=== PATIENT | female | born 1990 | race Caucasian/White ===

== ENCOUNTER 2018-10-10 21:31 | Emergency (ER) | payer OTHER ==
[2018-10-10] MEDS ORDERED: PROMETHAZINE 25 MG/ML VIAL ONE (22:22)
[2018-10-10 22:29] LABS: Absolute Lymphocytes (CBC) 0.6 K/uL (0.7-4.9); Absolute Monocytes 0.9 K/uL (0.1-1.3); Absolute Neutrophil 11.5 K/uL (1.8-8.0); Basophils % 0.2 % (0-1.3); Eosinophils % 0.1 % (0-4.4); Hematocrit 39.4 % (36.0-45.0); Lymphocytes % 4.8 % (15.3-44.8); RBC Red Blood Cell Count 4.23 M/uL (3.86-4.86)
[2018-10-10 22:43] LABS: BUN Blood Urea Nitrogen 8 mg/dL (7-18); Bicarbonate 26 mmol/L (21-32); Glucose Level 129 mg/dL (74-106); Potassium 3.2 mmol/L (3.5-5.1); Sodium Level 138 mmol/L (136-145)
[2018-10-10] MEDS ORDERED: NA CHLORIDE 0.9% 1,000 ML ONE (23:03)
[2018-10-10] MEDS ORDERED: IBUPROFEN 400 MG TAB ONE (23:03)
[2018-10-10] MEDS ORDERED: HYDROCODONE/CHLORPHEN 5 ML/OSYR ONE (23:03)
--- NOTE | 2018-10-11 00:27 | ER ---
Nurse's Notes [facility] Name: Julianna Morales Age: 28 yrs Sex: Female : 1990 Arrival Date: 10/10/2018 Time: 21:35 Bed 23 Private MD: Diagnosis: Influenza due to other identified influenza virus;Volume depletion;Fever presenting with conditions classified elsewhere Presentation: 10/10 21:42 Presenting complaint: Patient states: "I was diagnosed with the flu type A last Sunday jd3 and today I am having really bad chills, nausea and shortness of breath. that was one of the symptoms on the paper work that said, go to the er if this happens.". Transition of care: patient was not received from another setting of care. Onset of symptoms was October 10, 2018. Risk Assessment: Do you want to hurt yourself or someone else? Patient reports no desire to harm self or others. Initial Sepsis Screen: Does the patient meet any 2 criteria? No. Patient's initial sepsis screen is negative. Does the patient have a suspected source of infection? No. Patient's initial sepsis screen is negative. Care prior to arrival: Medication(s) given: Motrin given at 1900. 21:42 Method Of Arrival: Ambulatory jd3 21:42 Acuity: ANGEL 3 jd3 EXPEDITER SERVICE ORDER: 21:45 LMP 10/10/2018 jd3 Historical: - Allergies: 21:45 No Known Allergies; jd3 - Home Meds: 21:45 None [Active]; jd3 - PMHx: 21:45 None; jd3 - PSHx: 21:45 None; jd3 - Immunization history:: Adult Immunizations up to date. - Social history:: Smoking status: Patient/guardian denies using tobacco. - Ebola Screening: : Patient negative for fever greater than or equal to 101.5 degrees Fahrenheit, and additional compatible Ebola Virus Disease symptoms. Screenin:40 Abuse screen: Denies threats or abuse. Denies injuries from another. Nutritional ca1 screening: No deficits noted. Tuberculosis screening: No symptoms or risk factors identified. Fall Risk None identified. Assessment: 21:40 General: Appears in no apparent distress. comfortable, Behavior is calm, cooperative, ca1 appropriate for age. Pain: Complains of pain in chest Pain does not radiate. Pain currently is 3 out of 10 on a pain scale. at worst was 4 out of 10 on a pain scale. Pain began 4 hours ago. Aggravated by coughing. Neuro: Level of Consciousness is awake, alert, obeys commands, Oriented to person, place, time, situation. Cardiovascular: Heart tones S1 S2 present Capillary refill < 3 seconds Patient's skin is warm and dry. Respiratory: Reports cough that is productive, since 2 days ago Airway is patent Respiratory effort is even, unlabored, Respiratory pattern is regular, symmetrical, Breath sounds are clear bilaterally. GI: Abdomen is flat, non-distended, Bowel sounds present X 4 quads. Abd is soft and non tender X 4 quads. GI: Reports nausea, vomiting. : No deficits noted. No signs and/or symptoms were reported regarding the genitourinary system. EENT: Reports nasal congestion nasal discharge that is watery. Derm: Skin is intact, is healthy with good turgor, Skin is pink, warm \\T\\ dry. Musculoskeletal: Circulation, motion, and sensation intact. Capillary refill < 3 seconds. 22:16 Reassessment: Pt to Xray. ca1 22:35 Reassessment: Patient appears in no apparent distress at this time. Patient and/or ca1 family updated on plan of care and expected duration. Pain level reassessed. Patient is alert, oriented x 3, equal unlabored respirations, skin warm/dry/pink. 23:46 Reassessment: Patient appears in no apparent distress at this time. Patient and/or ca1 family updated on plan of care and expected duration. Pain level reassessed. Patient is alert, oriented x 3, equal unlabored respirations, skin warm/dry/pink. 10/11 00:13 Reassessment: Patient appears in no apparent distress at this time. Patient and/or ca1 family updated on plan of care and expected duration. Pain level reassessed. Patient is alert, oriented x 3, equal unlabored respirations, skin warm/dry/pink. 00:46 Reassessment: Critical Lab received from lab. Band count 31%. Provider Notified. ca1 01:03 Reassessment: Pt IV bolus still ongoing. ca1 Vital Signs: 10/10 21:45 BP 128 / 74; Pulse 128; Resp 19 S; Temp 102.3(O); Pulse Ox 99% on R/A; Weight 63.5 kg jd3 (R); Height 5 ft. 3 in. (160.02 cm) (R); Pain 9/10; 23:46 BP 109 / 67; Pulse 112; Resp 19; Temp 100.9(O); Pulse Ox 100% on R/A; ca1 10/11 00:13 BP 114 / 73; Pulse 103; Resp 19; Pulse Ox 100% on R/A; ca1 02:00 BP 107 / 67 RA; Pulse 98; Resp 15 S; Pulse Ox 98% on R/A; rv 10/10 21:45 Body Mass Index 24.80 (63.50 kg, 160.02 cm) jd3 ED Course: 10/10 21:35 Patient arrived in ED. am2 21:40 Patient has correct armband on for positive identification. Placed in gown. Bed in low ca1 position. Call light in reach. Side rails up X 1. Pulse ox on. NIBP on. 21:44 Triage completed. jd3 21:45 Latia Cash FNP-C is PHCP. snw 21:45 Maycol Fuchs MD is Attending Physician. snw 21:46 Arm band placed on. jd3 22:01 Inez Scott, ИВАН is Primary Nurse. ca1 22:02 Inserted saline lock: 20 gauge in right antecubital area, using aseptic technique. ca1 ,using aseptic technique. by Sarthak Ac RN Blood collected. 22:02 Patient maintains SpO2 saturation greater than 95% on room air. ca1 22:28 Chest Pa And Lat (2 Views) XRAY In Process Unspecified. EDMS 10/11 02:02 No provider procedures requiring assistance completed. IV discontinued, bleeding rv controlled, No redness/swelling at site. Pressure dressing applied. Administered Medications: 10/10 22:05 Drug: Phenergan 6.25 mg Route: IVP; Site: right antecubital; ca1 10/11 02:02 Follow up: Response: Nausea is decreased rv 10/10 22:30 Drug: NS 0.9% 1000 ml Route: IV; Rate: 1 bolus; Site: right forearm; ca1 23:30 Follow up: Response: No adverse reaction; IV Status: Completed infusion ca1 22:40 Drug: Tussionex Pennkinetic ER 5 ml Route: PO; ca1 10/11 00:37 Follow up: Response: No adverse reaction; Pain is decreased ca1 03 22:40 Drug: Motrin 400 mg Route: PO; ca1 10/11 02:02 Follow up: Response: No adverse reaction rv 00:32 Drug: NS 0.9% 1000 ml Route: IV; Rate: 1000 ml; Site: right antecubital; ca1 02:02 Follow up: IV Status: Completed infusion rv 00:32 Drug: Tylenol 650 mg Route: PO; ca1 02:01 Follow up: Response: Temperature is decreased rv 00:36 Drug: Zithromax 500 mg Route: PO; ca1 02:01 Follow up: Response: No adverse reaction rv 02:01 Drug: Zofran 4 mg Route: IVP; Site: right antecubital; rv 02:01 Follow up: Response: Medication administered at discharge. rv Outcome: 00:26 Discharge ordered by . rn 02:03 Discharged to home ambulatory. rv 02:03 Condition: good 02:03 Discharge instructions given to patient, family, Instructed on discharge instructions, follow up and referral plans. medication usage, Demonstrated understanding of instructions, follow-up care, medications, Prescriptions given X 2. 02:03 Patient left the ED. rv Signatures: Dispatcher [employer] EDMS Latia Cash, TECHNICAL ARTIST-C TECHNICAL ARTIST-Csnw Maycol Fuchs MD MD rn Moreno, Amanda am2 Davies, Jonathon, RN RN jSarthak Lazaro RN RN rv Inez Scott RN RN ca1
--- NOTE | 2018-10-11 00:27 | EDPHYS ---
Physician Documentation [facility] Name: Julianna Morales Age: 28 yrs Sex: Female : 1990 Arrival Date: 10/10/2018 Time: 21:35 Bed 23 Private MD: ED Physician Maycol Fuchs HPI: 10/10 21:48 This 28 yrs old Female presents to ER via Ambulatory with complaints of Chest snw Pain, Nausea. 21:48 The patient or guardian reports cough, flu symptoms, arthralgias, low-grade fever, snw myalgias, no appetite. Onset: The symptoms/episode began/occurred suddenly, 3 day(s) ago, and became worse and became persistent. Modifying factors: The symptoms are alleviated by nothing. Associated signs and symptoms: Pertinent positives: nausea, sore throat. Severity of symptoms: At their worst the symptoms were moderate severe. The patient has experienced a previous episode, in July pt had the flu for the first time. Began having s/s again 2 days ago and went to get tested for strep. Pt tested + for inflluenza and was given Tamiflu. as noted. 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 - Social history:: Smoking status: Patient/guardian denies using tobacco. - Ebola Screening: : Patient negative for fever greater than or equal to 101.5 degrees Fahrenheit, and additional compatible Ebola Virus Disease symptoms. ROS: 21:47 Eyes: Negative for injury, pain, redness, and discharge. snw 21:47 Neck: Negative for injury, pain, and swelling. 21:47 Respiratory: Negative for shortness of breath, cough, wheezing, and pleuritic chest pain, Abdomen/GI: Negative for abdominal pain, vomiting, diarrhea, and constipation, + nausea Back: Negative for injury and pain, : Negative for injury, bleeding, discharge, and swelling, MS/Extremity: Negative for injury and deformity, Skin: Negative for injury, rash, and discoloration, Neuro: Negative for headache, weakness, numbness, tingling, and seizure. 21:47 Constitutional: Positive for body aches, chills, fatigue, fever, malaise, poor PO intake. 21:47 ENT: Positive for sore throat. 21:47 Cardiovascular: Positive for chest pain, with cough. Exam: 21:45 Head/Face: Normocephalic, atraumatic. Eyes: Pupils equal round and reactive to light, snw extra-ocular motions intact. Lids and lashes normal. Conjunctiva and sclera are non-icteric and not injected. Cornea within normal limits. Periorbital areas with no swelling, redness, or edema. 21:45 Neck: Trachea midline, no thyromegaly or masses palpated, and no cervical lymphadenopathy. Supple, full range of motion without nuchal rigidity, or vertebral point tenderness. No Meningismus. Chest/axilla: Normal chest wall appearance and motion. Nontender with no deformity. No lesions are appreciated. 21:45 Respiratory: Lungs have equal breath sounds bilaterally, clear to auscultation and percussion. No rales, rhonchi or wheezes noted. No increased work of breathing, no retractions or nasal flaring. Abdomen/GI: Soft, non-tender, with normal bowel sounds. No distension or tympany. No guarding or rebound. No evidence of tenderness throughout. Back: No spinal tenderness. No costovertebral tenderness. Full range of motion. Skin: Warm, dry with normal turgor. Normal color with no rashes, no lesions, and no evidence of cellulitis. MS/ Extremity: Pulses equal, no cyanosis. Neurovascular intact. Full, normal range of motion. Neuro: Awake and alert, GCS 15, oriented to person, place, time, and situation. Cranial nerves II-XII grossly intact. Motor strength 5/5 in all extremities. Sensory grossly intact. Cerebellar exam normal. Normal gait. 21:45 Constitutional: The patient appears alert, awake, uncomfortable. 21:45 ENT: TM's: are normal, Nose: is normal, Mouth: is normal, Posterior pharynx: erythema, that is moderate, Voice: is normal. 21:45 Cardiovascular: Rate: tachycardic, Rhythm: regular, Heart sounds: normal. Vital Signs: 21:45 BP 128 / 74; Pulse 128; Resp 19 S; Temp 102.3(O); Pulse Ox 99% on R/A; Weight 63.5 kg jd3 (R); Height 5 ft. 3 in. (160.02 cm) (R); Pain 9/10; 23:46 BP 109 / 67; Pulse 112; Resp 19; Temp 100.9(O); Pulse Ox 100% on R/A; ca1 10/11 00:13 BP 114 / 73; Pulse 103; Resp 19; Pulse Ox 100% on R/A; ca1 02:00 BP 107 / 67 RA; Pulse 98; Resp 15 S; Pulse Ox 98% on R/A; rv 10/10 21:45 Body Mass Index 24.80 (63.50 kg, 160.02 cm) jd3 MDM: 10/10 21:45 Patient medically screened. snw 22:10 Data reviewed: vital signs, nurses notes. Data interpreted: Pulse oximetry: on room air snw is 99 %. Interpretation: normal. Counseling: I had a detailed discussion with the patient and/or guardian regarding: the historical points, exam findings, and any diagnostic results supporting the discharge/admit diagnosis, the need for outpatient follow up. Transition of care: After a detail discussion of the patient's case, care is transferred to Maycol Fuchs MD. 10/11 00:26 Differential diagnosis: pneumonia, dehydration. ED course: Pt improved, given fluids, + rn possible early pneumonia, will cover with zithromax, and return pecautions given/understood. . 10/10 21:57 Order name: CBC with Diff; Complete Time: 00:41 snw 10/10 21:57 Order name: Chem 7; Complete Time: 00:15 snw 10/10 21:57 Order name: Chest Pa And Lat (2 Views) XRAY snw 10/10 22:38 Order name: Manual Differential; Complete Time: 00:41 EDMS Administered Medications: 10/10 22:05 Drug: Phenergan 6.25 mg Route: IVP; Site: right antecubital; ca1 10/11 02:02 Follow up: Response: Nausea is decreased rv 10/10 22:30 Drug: NS 0.9% 1000 ml Route: IV; Rate: 1 bolus; Site: right forearm; ca1 23:30 Follow up: Response: No adverse reaction; IV Status: Completed infusion ca1 22:40 Drug: Tussionex Pennkinetic ER 5 ml Route: PO; ca1 10/11 00:37 Follow up: Response: No adverse reaction; Pain is decreased ca1 10/10 22:40 Drug: Motrin 400 mg Route: PO; ca1 10/11 02:02 Follow up: Response: No adverse reaction rv 00:32 Drug: NS 0.9% 1000 ml Route: IV; Rate: 1000 ml; Site: right antecubital; ca1 02:02 Follow up: IV Status: Completed infusion rv 00:32 Drug: Tylenol 650 mg Route: PO; ca1 02:01 Follow up: Response: Temperature is decreased rv 00:36 Drug: Zithromax 500 mg Route: PO; ca1 02:01 Follow up: Response: No adverse reaction rv 02:01 Drug: Zofran 4 mg Route: IVP; Site: right antecubital; rv 02:01 Follow up: Response: Medication administered at discharge. rv Disposition: 03:18 Co-signature as Attending Physician, Maycol Fuchs MD. rn Disposition: 10/11/18 00:26 Discharged to Home. Impression: Influenza due to other identified influenza virus, Volume depletion, Fever presenting with conditions classified elsewhere. - Condition is Stable. - Discharge Instructions: Dehydration, Adult, Fever, Adult, Influenza, Adult, Rehydration, Adult. - Prescriptions for promethazine 25 mg Oral Tablet - take 1 tablet by ORAL route every 6 hours As needed; 20 tablet. Zithromax Z- Chase 250 mg Oral Tablet - take 1 tablet by ORAL route as directed for 5 days Day 1 - take two (2) tablets one time. Day 2, 3, 4 , 5 take one (1) tablet once daily.; 6 tablet. - School release form, Work release form, Medication Reconciliation Form, Thank You Letter, Antibiotic Education, Prescription Opioid Use form. - Follow up: Private Physician; When: 2 - 3 days; Reason: Recheck today's complaints, Continuance of care, Re-evaluation by your physician. Follow up: Emergency Department; When: As needed; Reason: Worsening of condition. Signatures: Dispatcher [employer] EDMS Latia Cash, RONALDOC SUPERVISOR FRAME ASSEMBLY-Csnw Maycol Fuchs MD MD rn Davies, Jonathon, RN RN jd3 Vicente, Ronaldo, RN RN rv Inez Scott RN RN ca1 Corrections: (The following items were deleted from the chart) 02:03 00:26 10/11/2018 00:26 Discharged to Home. Impression: Influenza due to other rv identified influenza virus; Volume depletion; Fever presenting with conditions classified elsewhere. Condition is Stable. Discharge Instructions: Dehydration, Adult, Fever, Adult, Influenza, Adult, Rehydration, Adult. Prescriptions for promethazine 25 mg Oral Tablet - take 1 tablet by ORAL route every 6 hours As needed; 20 tablet. and Forms are School release form, Work release form, Medication Reconciliation Form, Thank You Letter, Antibiotic Education, Prescription Opioid Use. Follow up: Private Physician; When: 2 - 3 days; Reason: Recheck today's complaints, Continuance of care, Re-evaluation by your physician. Follow up: Emergency Department; When: As needed; Reason: Worsening of condition. rn
[2018-10-11] MEDS ORDERED: NA CHLORIDE 0.9% 1,000 ML ONE (00:37)
[2018-10-11] MEDS ORDERED: ACETAMINOPHEN 325 MG TABLET ONE (00:37)
[2018-10-11 00:39] LABS: Blood Morphology Comment NOT SEEN (NOT SEEN); Platelet Estimate ADEQ
[2018-10-11] MEDS ORDERED: AZITHROMYCIN 250 MG TAB ONE (00:46)
[2018-10-11] MEDS ORDERED: ONDANSETRON 4 MG/2 ML VIAL ONE (02:04)
--- NOTE | 2018-10-11 07:28 | RAD REPORT ---
EXAM DESCRIPTION: RAD - Chest Pa And Lat (2 Views) - 10/10/2018 10:29 pm CLINICAL HISTORY: Cough, recent flu diagnosis, chills COMPARISON: None. TECHNIQUE: PA and lateral views of the chest were obtained. FINDINGS: The lungs are normal volume. No consolidations seen. Minimal interstitial stranding in the medial left lung base. Heart size is normal and central vasculature is within normal limits. No p leural effusion or pneumothorax seen. No acute bony finding noted. No aortic abnormality. IMPRESSION: Minimal interstitial stranding left lung base. Findings are not definitive for pneumonia . Patient can be re-evaluated as clinical findings warrant.
== END 2018-10-11 02:03 | disposition home or self-care (01) ==
LOC: ER 21:31
DX: J10.1 Influenza due to other identified influenza virus with other respiratory manifestations (principal); E86.9 Volume depletion, unspecified
CPT/HCPCS: 36415; 71046; 80048; 85025; 96361; 96374; 96375; 99284; J2405; J2550; J7030